=== PATIENT | male | born 1950 | race Caucasian/White ===

== ENCOUNTER 2021-02-02 17:22 | Emergency (ER) | payer OTHER, MEDICARE ==
[~2021-02-02] VITALS: Ht 182.9 cm; Wt 88.6 kg
[2021-02-02] MEDS ORDERED: LIDOcaine 1% W/epiNEPHrine 1:200,000 10ml vial IJ ONE (17:40)
[2021-02-02] MEDS ORDERED: tranexamic acid 100mg/ml inj. TP ONE (17:45)
[2021-02-02] MEDS ORDERED: HYDR-3965 PO (20:12)
[2021-02-02] MEDS ORDERED: CEPH250T PO (20:12)
[2021-02-02 20:22] VITALS: BP 111/64
== END 2021-02-02 20:24 | disposition home or self-care (01) ==
LOC: ER 17:22
DX: S61.210A Laceration without foreign body of right index finger without damage to nail, initial encounter (principal); S20.211A Contusion of right front wall of thorax, initial encounter; R07.81 Pleurodynia; Z79.82 Long term (current) use of aspirin; Z79.899 Other long term (current) drug therapy; W18.2XXA Fall in (into) shower or empty bathtub, initial encounter; Z91.81 History of falling; Y93.E1 Activity, personal bathing and showering; Y92.002 Bathroom of unspecified non-institutional (private) residence as the place of occurrence of the external cause; Y99.8 Other external cause status
CPT/HCPCS: 12002; 71045; 71100; 99284